=== PATIENT | female | born 1980 | race American Indian/Alaskan Native ===

== ENCOUNTER 2017-12-31 07:26 | Emergency (ER) | payer MEDICAID ==
[2017-12-31] MEDS ORDERED: ULTRAM PO ONE (14:31)
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
--- NOTE | 2017-12-31 15:20 | XRay Report ---
RIGHT KNEE RADIOGRAPHS INDICATION: Fall, right knee pain. COMPARISON: None similar. FINDINGS: AP, lateral and oblique right knee radiographs demonstrate intact bony articulation and appearance. Normal soft tissues without evidence of suprapatellar effusion. CONCLUSION: Normal right knee radiographs. Thank you for the opportunity to participate in this patient's care.
--- NOTE | 2017-12-31 15:22 | XRay Report ---
RIGHT ANKLE RADIOGRAPHS INDICATION: Fall, right ankle pain. COMPARISON: None similar at this institution. FINDINGS: AP, lateral and oblique right ankle radiographs demonstrate intact mortise, malleoli and talar dome contour. Mild soft tissue swelling suspected laterally. CONCLUSION: Right ankle soft tissue swelling/injury possible without acute bony abnormality, as described. Please correlate. Thank you for the opportunity to participate in this patient's care.
[2017-12-31 16:33] VITALS: BP 122/65
== END 2017-12-31 16:31 | disposition home or self-care (01) ==
LOC: ED 07:26
DX: S80.211A Abrasion, right knee, initial encounter (principal); J45.909 Unspecified asthma, uncomplicated; W19.XXXA Unspecified fall, initial encounter; Y93.89 Activity, other specified; Y92.89 Other specified places as the place of occurrence of the external cause; Y99.8 Other external cause status
CPT/HCPCS: 99283

== ENCOUNTER 2018-01-01 23:57 | Emergency (ER) | payer MEDICAID ==
[2018-01-02 00:16] VITALS: BP 146/115
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
== END 2018-01-02 06:16 | disposition left against medical advice (07) ==
LOC: ED 23:57
DX: M79.601 Pain in right arm (principal); M25.561 Pain in right knee; Z53.21 Procedure and treatment not carried out due to patient leaving prior to being seen by health care provider

== ENCOUNTER 2018-01-02 08:13 | Emergency (ER) | payer MEDICAID ==
[2018-01-02 08:49] VITALS: BP 110/62
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
== END 2018-01-02 11:21 | disposition home or self-care (01) ==
LOC: ED 08:13
DX: S80.212A Abrasion, left knee, initial encounter (principal); S80.211A Abrasion, right knee, initial encounter; X58.XXXA Exposure to other specified factors, initial encounter; Y93.89 Activity, other specified; Y92.89 Other specified places as the place of occurrence of the external cause; Y99.8 Other external cause status; J45.909 Unspecified asthma, uncomplicated; F17.200 Nicotine dependence, unspecified, uncomplicated
CPT/HCPCS: 99281